=== PATIENT | female | born 1950 | race Caucasian/White ===

== ENCOUNTER 2017-02-03 15:27 | Observation (INO) | payer MEDICARE, BC ==
--- NOTE | ~2017-02-03 | CST ---
Cardiac Perfusion Imaging Demographics Patient Name JERRY Dickinson Gender Female Patient Number [id number] Race Visit Number [id number] Ethnicity Corporate ID Room Number 415 Accession Number [id number] Height 66 inches Date of 1950 Weight 159 pounds Age 66 year(s) BSA 1.81 m Referring Physician Radha Nugent MD BMI 25.66 kg/m Interpreting Physician FABIEN Gilliland Date of study 02/05/2017 King Yair Song MD Supervising MD/MLP Radha Nugent MD NM Technologist Wesley Gifford [facility] Ordering Physician Radha Nugent MD Stress crime lab technician Stress ECG Reading Radha Nugent MD Nurse Landeros Kirti Physician King Yair Goodman The procedure was explained in detail to the patient. Risks, complications and alternative treatments were reviewed. Written consent was obtained. Medications Reviewed with Patient prior to Procedure. Procedure Procedure Type: Nuclear Stress Test:Cardiac Study SF Procedure Start time: 02/05/2017 08:00 End time: 02/05/2017 08:20 Indications: Chest pain and Hypertension. Risk Factors The patient risk factors include:hypercholesterolemia, hypertension and dyslipidemia. Conclusions Summary Perfusion Images: The overall quality of the study is good. Left ventricular cavity is noted to be normal on the stress and rest studies. There is no evidence of abnormal lung activity. The right ventricle is not visualized and cannot be assessed. Stress SPECT images demonstrate homogenous tracer distribution throughout the myocardium. Rest SPECT images demonstrate homogenous tracer distribution throughout the myocardium. Gated SPECT imaging reveals normal myocardial thickening and wall motion. The left ventricular ejection fraction was calculated to be 76%. Impression ECG portion of stress test is clinically negative for ischemia by diagnostic criteria. Myocardial perfusion imaging is normal. Overall left ventricular systolic function was normal without regional wall motion abnormalities. There are no previous studies for comparison. Stress Protocols Resting ECG Normal sinus rhythm. Resting HR:71 bpm Resting BP:128/72 mmHg Stress Protocol:Exercise Peak HR:152 bpm HR/BP product:[id number] Peak BP:182/72 mmHg Predicted HR: 152 bpm % of predicted HR: 100 Test duration:06:59 min Reason for termination:Target heart rate ECG Findings Normal sinus rhythm. Sinus tachycardia. Complications Procedure complication: None. Stress Interpretation Appropriate hemodynamic response to exercise. No significant ST-T wave changes with exercise. EKG portion is negative for ischemia by diagnostic criteria. The Almodovar Treadmill score was 7 .This corresponds to a low risk stress test. Imaging Results Summed scores - Summed stress score: 0 - Summed rest score: 0 - Summed difference score: 0 Stress ejection Ejection fraction:77 % EDV :52 ml ESV :12 ml Stroke volume :40 ml LV mass :87 gr Imaging Protocols Rest Stress Isotope:Tc99m Myoview IV Isotope: Tc99m Myoview IV Isotope dose:10.4 mCi Isotope dose:32.1 mCi Date:02/05/2017 06:40 Date:02/05/2017 08:00 Technique: SPECT Technique: Gated Supine SPECT Supine IV remains in place after procedure. Scan Time:30 minutes post injection Scan Time:15-30 minutes post injection Medical History Admission Data Admission date: 02/03/2017 Admission Time: 18:45 Hospital Status: Inpatient. Signatures
--- NOTE | ~2017-02-03 | ECH ---
Transthoracic Echocardiography Report (TTE) Demographics Patient Name KEIRY EDWARDS Date of Study 02/04/2017 Patient Number [id number] Visit Number [id number] Date of 1950 Room Number 415 Accession Number [id number] Gender Female Age 66 year(s) Referring Radha Nugent MD Manager Distribution Debra Fuentes [facility] Physician Ruperto Raygoza Physician Interpreting Anoop THOMAS [employer] Librarian Physician Isiah Supervising Ordering Physician Ruperto Raygoza MD/P Nurse Stress Brand Sales Manager Conclusions Contractility Score Summary Normal Left Ventricular contractility was noted. Summary Technically fair exam. The estimated left ventricular ejection fraction is 70%. Left ventricle appears hyperdynamic. Mild concentric left ventricular hypertrophy. Diastolic assessment reveals Grade I diastolic dysfunction. No significant valvular abnormalities. Recommendation The patient will be given the results of this study by the physician who ordered the exam. Procedure Type of Study TTE procedure:Echo Complete SF. Procedure Date Date: 02/04/2017 Start: 10:39 AM Technical Quality: Adequate visualization Indications:Chest pain and Hypertension. Appropriate Use Criteria: 9 Height: 66 inches Weight: 159 pounds BSA: 1.81 m Rhythm: Sinus bradycardia HR: 55 bpm BP: 128/67 mmHg M-Mode/2D Measurements LV Diastolic Dimension: 3.76 cm LV Systolic Dimension: 1.91 cm LV Septum Diastolic: 1.2 cm LV PW Diastolic: 1.23 cm AO Root Dimension: 2.24 cm Cardiac Output: 2.73 l/min LA Dimension: 2.63 cm Cardiac Index: 1.51 l/min*m RV Diastolic Dimension: 2.48 cm LA volume index: 13 ml/m LVOT: 1.53 cm LVOT VTI: 26.99 cm LV Stroke volume: 49.6 ml LV Stroke volume index: 27.4 ml/m Doppler Measurements AV Peak Velocity: 1.2 m/s MV Peak E-Wave: 0.79 m/s AV Peak Gradient: 5.76 mmHg MV Peak A-Wave: 0.9 m/s AV Mean Gradient: 3.03 mmHg MV E/A Ratio: 0.88 LVOT Peak Velocity: 1.11 m/s MV P1/2t: 62.3 msec AV Area (Continuity):1.7 cm MV Deceleration Time: 214.9 msec TR Velocity:2.29 m/s MV Area (PHT): 3.53 cm TR Gradient:20.97 mmHg PV Peak Velocity: 0.76 m/s Estimated RAP:3 mmHg PV Peak Gradient: 2.29 mmHg Estimated RVSP: 24 mmHg Estimated PASP: 23.97 mmHg Findings Left Ventricle The left ventricle is normal in size . Mild concentric left ventricular hypertrophy. Diastolic assessment reveals Grade I diastolic dysfunction. Right Ventricle Normal right ventricle structure and function. Left Atrium Normal left atrial size. Right Atrium Right atrium not well visualized. Mitral Valve Normal mitral valve structure and function. Trivial mitral regurgitation by color Doppler. Aortic Valve Normal aortic valve structure and function. Tricuspid Valve Normal appearing tricuspid valve. Trivial tricuspid regurgitation by color Doppler. Pulmonic Valve Normal pulmonic valve structure and function. Pericardial Effusion No evidence of pericardial effusion. Miscellaneous Visualized portions of the aortic root and ascending aorta appear normal in size. Pleural Effusion No evidence of pleural effusion. Contractility Score LV regional wall motion:(0-Non visualized 1-Normal 2-Hypokinesis 3-Akinesis 4-Dyskinesis 5-Aneurysm) Signature
[2017-02-06] MEDS ORDERED: ZESTRIL DPS20 MG PO (11:13)
[2017-02-06] MEDS ORDERED: LIPITOR DPS20 MG PO (11:13)
[2017-02-06] MEDS ORDERED: XANAX DPS0.25 MG PO (11:13)
[2017-02-06] MEDS ORDERED: HCTZ12.5 MG PO (11:13)
[2017-02-06] MEDS ORDERED: ASPIRIN EC81 MG PO (11:13)
[2017-02-06] MEDS ORDERED: MAPAP PM (TYLEN1 TAB PO (11:13)
--- NOTE | 2017-02-10 08:30 | HP ---
ADMIT: 02/03/2017 RM/LOC: 415 [facility] MR#: [id number] [address] [facility] [address] [place], [place] [address] AFIA TORRES [address] [place] [address] History and Physical SEX: F AGE: 66 : 1950 DATE OF SERVICE: CHIEF COMPLAINT: "I have high blood pressures, chest and neck pains." HISTORY OF PRESENT ILLNESS: Afia is a very pleasant 66-year-old female, admitting originally from [place], [place], admitted through the [facility] Call system, who came into the emergency department with the above complaints. Her son is actually Dr. Torres here in town, and she was on her way today to [place], when she started having substernal chest pressure that radiated up into her bilateral neck. She states that she took her blood pressure while on the way and noted her blood pressures to be 168/80. The patient over the last week or so has had similar-like episode. She states that last , she was seen in the [place] [facility] again with a similar like episode with elevated blood pressures, chest pressure radiating to the neck. She was noted to have high blood pressure and was discharged on lisinopril. They did not feel that this was cardiac in origin and recommended she follow up with her primary care physician. She notes that she has been under more stress as she had been planning for her daughter's graduation from college, which they just celebrated over this last weekend. The patient does note that she has been checking her blood pressure regularly and it has been higher. She normally runs systolic blood pressures in the 110s to 120s and recently has been running higher in the 150s. She did take a baby aspirin today. She does not smoke. She has not had nausea or vomiting with this. She has noted some exertional shortness of breath over the last few weeks, however. Both of these episodes occurred without exertion. She also has a history of some reflux-like symptoms and dysphagia and occasionally does feel like fluids will get "stuck" and cause her some chest pains at times. She has never had a food bolus lodged, however. Upon arrival to our emergency department, she was evaluated and has been given nitroglycerin. No additional aspirin or other medications. Her blood pressure did come down somewhat, but her systolic blood pressure is still running a little higher. She notes that she still has some pressure on her chest, but has improved. Continues to radiate up through the neck to some degree. She has no previous cardiac history, but does note that her dad had bypass surgery in his 70s, she believes. PAST MEDICAL HISTORY: Include: 1. Dyslipidemia, previously on statin, but stopped recently as she thought it was causing her lower leg pain. 2. Left knee osteoarthritis, recently worsening and has had multiple injections. 3. Mild generalized anxiety disorder. 4. Rosacea. 5. Recently diagnosed with hypertension. MEDICATIONS: Include: 1. Lisinopril 10 mg daily. 2. Aspirin 81 mg daily (took 2 aspirin this morning). 3. Minocycline p.r.n. for skin issues, worse during summer (stopped taking this recently given her chest pain). ADMIT: 02/03/2017 RM/LOC: 415 [facility] MR#: [id number] [address] [place] [id number] AFIA TORRES [id number] [place] [id number] History and Physical SEX: F AGE: 66 : 1950 4. Tylenol p.m. p.r.n. for helping with sleep. ALLERGIES: NO KNOWN DRUG ALLERGIES. 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 She was to her , Logan, who is also a teacher and an director of application development in [place]. They continue to live in [place]. They have 4 children. A set of twins, with Dr. Miller Torres being one of them. Their daughter, Lelia, recently graduated from college this year. No drug or tobacco use. Minimal alcohol use. FAMILY HISTORY: Did notes that dad in 1996, had bypass in the early when he was about 70 years old. Mom lived until age 96 and just last May from old age, possible unknown cancer, and did have some mild dementia at the end. REVIEW OF SYSTEMS: A 10-point review of systems obtained per HPI, otherwise negative. PHYSICAL EXAMINATION: VITAL SIGNS: Blood pressure 156/68, pulse 73, respirations 16, temperature afebrile, 99% on room air. GENERAL: Alert and oriented x3. Does not appear in acute distress. Very pleasant. Her , Logan, at the bedside. HEENT: Pupils equal, round, and reactive. Extraocular muscles intact. Throat clear. Trachea midline. She does sound to have a mild right carotid bruit, none on the left. HEART: Regular rate and rhythm. No murmurs, rubs, or gallops. LUNGS: Clear to auscultation bilaterally. No wheezes or crackles. ABDOMEN: Soft, nontender, and nondistended. No organomegaly. EXTREMITIES: Without any significant edema. 2+ pulses. NEUROLOGIC: Cranial nerves II through XII grossly intact. No focal deficits. SKIN: Normal. LABORATORY DATA: CBC obtained was normal. Basic metabolic panel. Showed a glucose of 110, otherwise normal with normal cardiac enzymes. Chest x-ray, negative study. EKG sinus rhythm with no specific ischemic changes. ASSESSMENT: 1. Chest pain, possible anginal. 2. Possible right carotid bruit. 3. Hypertension. 4. Anxiety. 5. Reflux/dysphagia. PLAN: Given Afia's symptoms and recurrent episodes, we will admit for further workup and evaluation. Certainly with her recent exertional dyspnea, and these 2 episodes with chest pressure, elevated blood pressure, etc, I do think evaluating her heart is pertinent. We will discuss with Cardiology and ADMIT: 02/03/2017 RM/LOC: 415 [facility] MR#: [id number] [address] [address] AFIA TORRES [address] [address] [place] [place] [address] History and Physical SEX: F AGE: 66 : 1950 see if they would like her to set up for stress test versus possible direct cardiac catheterization. We will order echocardiogram, carotid ultrasounds given her carotid bruit, and renal ultrasound given her elevated blood pressures. We will start beta storm tonight along with p.r.n. medication for hypertension and statin therapy. Fasting lipid in the morning. The patient will likely need scope at some point, but I do not think that her dysphagia is what is causing her symptoms now and probably not pertinent to workup during this hospitalization. We will consider barium swallow if time allows. Discussed details at length with the patient and planned for further workup. She and her are in agreement with this. Jaret Hickey MD/ glenis JOB #: [id number] CC: Jaret Hickey, Attending Physician Jaret Hickey, Family Physician
--- NOTE | 2017-02-13 11:56 | CO ---
ADMIT: 02/03/2017 RM/LOC: 415 [facility] MR#: [id number] [address] [address] AFIA EDWARDS [address] [place] [address] Consultation SEX: F AGE: 66 : 1950 DATE OF CONSULTATION: 02/04/2017 ATTENDING PHYSICIAN: Jaret Hickey CONSULTING PHYSICIAN: Norm Garcia MD REASON FOR CONSULT: Chest pain. Tiny Blakely RN, scribing for Dr. Raffi Garcia. HISTORY OF PRESENT ILLNESS: Afia is a very pleasant, 66-year-old female, I have been asked to see in Cardiology consultation by Dr. Jaret Hickey for chest discomfort. She has no prior history of coronary artery disease. She reports that she had an echocardiogram performed several years ago which was normal. She has history in the past of hyperlipidemia, but is currently not on any statin medication due to leg pain. She was diagnosed last week with elevated blood pressure, started on medication at that time. She has family history of coronary artery disease with her father having three-vessel bypass in his 70s. Afia presented to [facility] emergency room with complaints of chest discomfort. She states that her pain began last week. She describes it as a pressure/tightness across her chest radiating into her neck with bilateral arm numbness, worse on the right. She states that this happened last week in [place] and she went to the emergency room there. Her cardiac workup did not show any evidence of ischemia. However, her blood pressure at that time was 200s/110s. She was started on lisinopril which did help her symptoms somewhat, but it kept coming back with exertion. She states that she has had chest pain or pressure everyday since then off and on lasting 30 to 60 minutes or so. She does feel like lying on her left side does improve it somewhat. She primarily feels that it occurs with exertion, however. In the hospital, her blood pressure has fluctuated anywhere from 120 systolic up to 170s. She denies any shortness of breath, nausea, diaphoresis, or palpitations, and has not had any syncope or near-syncope. EKG is normal, and echocardiogram performed this morning, shows normal wall motion, valvular structure, and ejection fraction. She was mildly hypovolemic suggested on echocardiogram, but she does report that she has been eating and drinking okay. Lipid levels were performed which more appropriate levels for her risks factors. Cardiac enzymes have been negative x4. PAST MEDICAL HISTORY: 1. Hyperlipidemia. 2. Newly diagnosed hypertension. 3. Osteoarthritis. 4. Anxiety. 5. Rosacea. PAST SURGICAL HISTORY: Includes tonsillectomy and tubal ligation. ADMIT: 02/03/2017 RM/LOC: 415 [facility] MR#: [id number] [address] [address] AFIA EDWARDS [address] [place] [id number] Consultation SEX: F AGE: 66 : 1950 ALLERGIES: NO KNOWN MEDICATION ALLERGIES. MEDICATIONS: Current medications include: 1. Xanax 0.25. 2. Aspirin 81 daily. 3. Lisinopril 10 daily. 4. Tylenol PM at bedtime. FAMILY HISTORY: Positive family history of heart disease with father having three-vessel bypass in his 70s. Her mother in her 90s with some history of cancer. Father did also have carotid disease. No family history of stroke or diabetes. SOCIAL HISTORY: Afia is . She is a retired teacher. She describes minimal alcohol use. She denies any caffeine, drug, or tobacco use. REVIEW OF SYSTEMS: GENERAL: Increased fatigue over the last few days. Denies any recent fever, chills, or sweats or weight changes. EYES: She wears corrective lenses. No glaucoma or cataracts. ENT: Denies hearing loss or problems with nose, mouth or throat. PULMONARY: Denies cough, sputum production, asthma, emphysema or bronchitis. Denies snoring loudly, wakefulness at night, or fatigue upon awakening. GASTROINTESTINAL: She has had some difficulty swallowing, feeling like things are getting stuck in her throat. She did have a swallowing study this morning and those results are pending. She has described some heartburn occasionally. She denies any GI bleeding, liver issues, or stomach ulcers. GENITOURINARY: Denies dysuria, hematuria, nocturia, urinary tract infection, or kidney stones. Denies history of renal insufficiency or failure. MUSCULOSKELETAL: History of osteoarthritis and muscle and joint pain in her knees. Denies gout. ENDOCRINE: Denies history of thyroid dysfunction or diabetes. HEMATOLOGIC: Denies history of anemia, easy bruising, or cancer. NEUROLOGIC: Denies chronic headaches, dizziness, syncope, stroke, seizures or numbness or tingling. PSYCHIATRIC: History of anxiety. Denies any depression. PHYSICAL EXAMINATION: VITAL SIGNS: Blood pressure 128/67, heart rate 54, respirations 14, temperature 97.9, oxygenation 99% on room air. SKIN: [place], warm and dry. EYES: Sclerae clear. No xanthelasmas. ENT: Oral mucosa is pink and moist. No jugular venous distention or carotid bruits. CHEST: Respirations are even and unlabored. Lungs are clear to auscultation. HEART: Regular rate and rhythm. Normal S1, S2. No murmurs, rubs or gallops. ABDOMEN: Soft and nontender. MUSCULOSKELETAL: Gait is normal. EXTREMITIES: Peripheral pulses palpable. No clubbing, cyanosis or edema. PSYCHIATRIC: Alert and oriented. Mood and affect are appropriate. ADMIT: 02/03/2017 RM/LOC: 415 [facility] MR#: [id number] [address] [place] [address] AFIA EDWARDS Te[address] [address] [place] [address] Consultation SEX: F AGE: 66 : 1950 DIAGNOSTIC DATA: Chest x-ray on 02/03, showed no acute cardiopulmonary process. Sodium 141, potassium 3.9, BUN 13, creatinine 0.8, glucose 110, magnesium 2.3, total cholesterol 195, triglyceride 118, HDL 59, LDL 112. CK 70, MB 0.9. Troponin less than 0.015 this is on fourth set, all sets are negative. White blood cell count 4.3, hemoglobin 12.2, hematocrit 37.2, and platelets 212. ASSESSMENT AND PLAN: 1. Chest pain. 2. Hypertension. Echocardiogram was performed this morning and is normal. Her symptoms are concerning for angina, but she has minimal risk factors. I would recommend performing exercise nuclear stress test in the morning to evaluate for any evidence of ischemia. I would increase her lisinopril to twice daily dosing to help with blood pressures control, and recheck lab work and EKG in the morning as well. Thank you for the consult. I have read and agree with the documentation that has been completed regarding this visit. By signing this record, I attest that the documentation was completed in my physical presence and is an accurate record of the encounter. Tiny Blakely RN / Norm Garcia MD / glenis JOB #: [id number] CC: Jaret Hickey, Attending Physician Jaret Hickey, Family Physician
--- NOTE | 2017-02-21 08:17 | ER ---
ADMIT: 02/03/2017 RM/LOC: 415 [facility] MR#: [id number] [address] [address] KEIRY EDWARDS [address] [address] [place] [address] Emergency Room Report SEX: F AGE: 66 : 1950 DATE: 02/03/2017 ADDENDUM: A 66-year-old white female coming in with kind of chest tightness. She has kind of had it on and off may be for the last 3 days or so. She was seen one place, they blamed it on hypertension, but they put her on some medicine, lisinopril twice a day, but she backed that down to once a day. She was on some lipid medicine too, she quit taking that. At this time, CBC, chemistry, chest x-ray, EKG looks okay. We gave her some nitroglycerin that seemed to take away the tightness in her neck that she had. I spoke with Dr. Hickey of [facility], he will admit her as a rule out. CONDITION ON DISCHARGE: Fair. Brayan Martinez MD/ glenis JOB #: [id number] CC: Jaret Hickey MD, Attending Physician Jaret Hickey MD, Family Physician
== END 2017-02-05 14:20 | disposition home or self-care (01) ==
LOC: ER 15:27 → 4PCU 18:45
PROVIDERS: ADMIT Family Medicine
DX: R07.9 Chest pain, unspecified (principal); I10 Essential (primary) hypertension; F41.9 Anxiety disorder, unspecified; I65.21 Occlusion and stenosis of right carotid artery; E78.5 Hyperlipidemia, unspecified; R13.10 Dysphagia, unspecified; M17.12 Unilateral primary osteoarthritis, left knee; Z79.82 Long term (current) use of aspirin; Z79.899 Other long term (current) drug therapy